=== PATIENT | male | born 1990 | race American Indian/Alaskan Native ===

== ENCOUNTER 2021-10-13 04:32 | Emergency (ER) | payer SELFPAY ==
[2021-10-13 04:47] VITALS: BP 128/81
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
== END 2021-10-13 05:08 | disposition home or self-care (01) ==
LOC: ED 04:32
DX: S00.81XA Abrasion of other part of head, initial encounter (principal); V89.2XXA Person injured in unspecified motor-vehicle accident, traffic, initial encounter; Y93.89 Activity, other specified; Y92.89 Other specified places as the place of occurrence of the external cause; Y99.8 Other external cause status
CPT/HCPCS: 99282